=== PATIENT | male | born 1985 | race Caucasian/White ===

== ENCOUNTER 2025-05-21 10:07 | Observation (INO) | payer MEDICAID ==
[2025-05-21] VITALS (10 sets, daily range): BP systolic 138–166; BP diastolic 72–87
[~2025-05-21] VITALS: Ht 177.8 cm; Wt 110.0 kg
[2025-05-21] MEDS ORDERED: ALLOPURINOL100 MG PO (10:24)
[2025-05-21 10:43] LABS: BASOPHILS 0.4 % (0.2-1.2); EOSINOPHILS 2.0 % (0.8-7.0); LYMPHOCYTES 11.3 % (21.8-53.1); MCH 33.0 PG (25.7-32.2); MCHC 34.6 g/dL (32.3-36.5); MCV 95.5 fL (79.0-92.2); MONOCYTES 9.5 % (5.3-12.2); NEUTROPHILS 76.1 % (34.0-67.9); RBC 4.45 M/uL (4.63-6.08)
[2025-05-21 10:55] LABS: ALT (SGPT) 35.0 U/L (14-59); AST (SGOT) 19.0 U/L (15-37); GLOMERULAR FILTRATION RATE,EST 112.0 mL/min (>60); PROTEIN, TOTAL 7.2 g/dL (6.4-8.2); UREA NITROGEN 11.0 mg/dL (7-18)
[2025-05-21] MEDS ORDERED: CEFAZOLIN SODIUM 2 GM in SODIUM CHLORIDE 0.9% 100 ML IV ONE (11:00)
[2025-05-21] MEDS ORDERED: LACTATED RINGER'S 1,000 ML IV ONE ×2 (11:00→13:45)
[2025-05-21] MEDS ORDERED: SODIUM CHLORIDE 0.9% 100 ML IV SCH (12:30)
[2025-05-21] MEDS ORDERED: DEXTROSE 5% - LACTATED RINGERS 1,000 ML IV SCH (13:45)
[2025-05-21] MEDS ORDERED: MORPHINE SULFATE 4 MG/ML VIAL IV PRN (13:45)
[2025-05-21] MEDS ORDERED: LACTATED RINGER'S 1,000 ML IV SCH ×2 (13:45)
--- NOTE | 2025-05-21 13:45 | NUR ---
PT COMPLETES PRE-OP [place] INDEPENDENTLY, FRESH LINENS AND GOWN IN PLACE. ALL PERSONAL CLOTHES AND JEWELRY REMOVED AT THIS TIME. PT STATES NO CURRENT NEEDS, FRIEND AT BEDSIDE, CALL LIGHT WITHIN REACH.
[2025-05-21] MEDS ORDERED: BUPIVACAINE 0.75% IN DEXTROSE 2 ML AMP ONE (14:21)
[2025-05-21] MEDS ORDERED: fentaNYL citrate 100 MCG/2 ML VIAL ONE (14:21)
[2025-05-21] MEDS ORDERED: MIDAZOLAM HCL 2 MG/2 ML VIAL ONE (14:21)
--- NOTE | 2025-05-21 14:24 | NUR ---
PT LEAVES UNIT FOR PROCEDURE.
[2025-05-21] MEDS ORDERED: NALOXONE HCL 0.4 MG SYR IV PRN (14:30)
[2025-05-21] MEDS ORDERED: IBLOOD GLUCOSE TEST STRIP 1 EA TEST VI PRN (14:30)
[2025-05-21] MEDS ORDERED: fentaNYL citrate 50 MCG/ML SDV IV PRN (14:30)
[2025-05-21] MEDS ORDERED: KETAMINE in NS 50 MG/5 ML SYR ONE (15:03)
[2025-05-21] MEDS ORDERED: KETOROLAC TROMETHAMINE 30 MG/ML VIAL ONE (15:11)
[2025-05-21] MEDS ORDERED: LIDOCAINE HCL 2% 5 ML SDV ONE (15:11)
--- NOTE | 2025-05-21 15:44 | NUR ---
05/21/25 1544 JOEL DIAZ 1530 PT ARRIVED TO PACU FROM OR VIA STREACHER, PT AWAKE TO TACTILE STIMULI. PT HAS NATURAL AIRWAY, PT BREATHING EQUAL AND UNLABORED. PT SNORING WHEN FALLING BACK ASLEEP. PT REPORTS NO PAIN OR NAUSE AT THIS TIME. PT HAS 6L OF OXYGEN VIA FACE MASK, PT OXYGEN AT 100% AT 6L. REPORT TAKEN FROM SARAH ROSEN. PT HAS LR RUNNING VIA IV IN L AC. 1535 PT PLACED ON RA, PT STAYING ABOVE 90% O2 SAT ON RA. PT FALLS BACK SLEEP QUICKLY BUT AWAKES TO VERBAL STIMULI AND ANSWERS QUESTIONS 1539 PT COACHED THROUGH DEEP BRATHING OXYGEN DOWN TO 92% ON RA, WHEN DEEP BREATHING DONE OXYGEN BACK UP TO 96% ON RA. 1544 PT GIVEN ICE CHIPS PER REQUEST. PT REPORTS NO PAIN OR NAUSEA AT THIS TIME.
[2025-05-21] MEDS ORDERED: OXYCODONE/APAP 7.5/325 TAB PO PRN (16:00)
[2025-05-21] MEDS ORDERED: IBUPROFEN 600 MG TAB PO PRN (16:00)
--- NOTE | 2025-05-21 16:00 | NUR ---
PT BACK TO [facility] ROOM. RECIEVED REPORT FROM MIKI MALDONADO. PT A+0 X4. PT STATES PAIN IS 3/10 CURRENTLY, DENIES NEED FOR PAIN CONTROL MEASURES. PT DENIES NAUSEA/SOB. CPOX IN PLACE, VSS. PT REQUESTS ICE WATER, GIVEN. PT DENIES ANY FURTHER NEEDS AT THIS TIME, CALL LIGHT WITHIN REACH, FRIEND AT THE BEDSIDE.
--- NOTE | 2025-05-21 19:34 | NUR ---
VERBAL REPORT RECEIVED BY JUANY LIVINGSTON. PATIENT IS AWAKE IN BED AT THIS TIME. CPOX AT BEDSIDE SPO2 95%, BPM 66. PATIENT DENIES ANY NEEDS AT THIS TIME. CALL LIGHT IN REACH.
--- NOTE | 2025-05-21 21:01 | NUR ---
ASSESSMENT COMPLETE. ABD PAD WITH SMALL AMOUNT OF SEROSANGUINEOUS DRAINAGE, NEW PAD PLACED. LOOP DRAINAGE INTACT. PATIENT RATES POST-OP SITE PAIN 3/10, DENIES ANY NEEDS. VSS AT THIS TIME. CALL LIGHT IN REACH. FAMILY AT BEDSIDE AT THIS TIME.
--- NOTE | 2025-05-21 23:38 | NUR ---
SCD PUMP ALARMING, IN ROOM TO RESET SETTINGS. pt RESTING IN BED ON LEFT SIDE, EYES CLOSED, BREATHING UNLABORED. SPO2 95% ON RA, CPOX IN PLACE. NO DISTRESS NOTED.
--- NOTE | 2025-05-22 01:15 | NUR ---
PATIENT IS RESTING IN BED EYES CLOSED BREATHING EVEN AND UNLABORED, SCDS IN PLACE. NO NEEDS AT THIS TIME. CALL LIGHT IN REACH.
[2025-05-22 01:45] VITALS: BP 133/78
--- NOTE | 2025-05-22 01:45 | NUR ---
SUNNY RN IN THE ROOM, AND THIS RN IN THE ROOM WITH PATIENT. PATIENT AMBULATES INDEPENDENTLY TO BATHROOM, PATIENT TOLERATED WELL. PATIENT IN BED AWAKE, CPOX AT BEDSIDE SPO2 97%, BPM 79. PATIENT DENIES ANY NEEDS AT THIS TIME. CALL LIGHT IN REACH.
--- NOTE | 2025-05-22 04:23 | NUR ---
PATIENT RESTING IN BED BREATHING EVEN AND UNLABORED. CPOX AT BEDSIDE SPO2 95%, BPM 52. CALL LIGHT IN REACH.
[2025-05-22 06:16] VITALS: BP 120/67
[2025-05-22 06:19] VITALS: BP 120/67
--- NOTE | 2025-05-22 06:22 | NUR ---
PATIENT IS RESTING IN BED AWAKE. CPOX AT BEDSIDE, VSS. FRESH ICE WATER PROVIDED. PATIENT DENIES ANY NEEDS AT THIS TIME. CALL LIGHT IN REACH.
--- NOTE | 2025-05-22 07:20 | NUR ---
RECIEVED REPORT FROM MIKI FERNANDEZ AND MIKI CORREA. PT AWAKE IN BED, DENIES PAIN OR NAUSEA AT THIS TIME. PT STATES NO CURRENT NEEDS. ABD PAD WITH SCANT AMOUNT OF SEROSANGUINOUS DRAINAGE PRESENT AT THIS TIME. CALL LIGHT WITHIN REACH. SITZ BATH EDUCATION DONE WITH PT, PT VERBALIZES UNDERSTANDING.
[2025-05-22] MEDS ORDERED: IBUPROFEN600 MG PO (09:10)
[2025-05-22] MEDS ORDERED: TYLENOL EXTRA500 MG PO (09:12)
--- NOTE | 2025-05-22 09:28 | NUR ---
IV DC'D WNL. PT UP DOING SITZ BATH INDEPENDENTLY, DRESSING IN OWN CLOTHES. AT THE BEDSIDE. CALL LIGHT WITHIN REACH.
[2025-05-22 10:00] VITALS: BP 151/89
[2025-05-22 10:49] VITALS: BP 151/89
--- NOTE | 2025-05-24 11:53 | OR ---
[facility] [address], [place] [address] Signed DATE OF OPERATION: 05/21/2025 SURGEON: Gina Cevallos MD PREOPERATIVE DIAGNOSIS: Left perineal/perirectal abscess. POSTOPERATIVE DIAGNOSIS: Left perineal/perirectal abscess, complex, extensive. PROCEDURES: 1. Exam under anesthesia, left perineum. 2. Incision, drainage and debridement of complex left perineal abscess including debridement of necrotic tissue. 3. Placement of yellow vessel loops x2 for drainage. ANESTHESIA: Spinal with IV sedation; Rachana Bernadette, TAILOR FITTER, and local 10 mL of 0.25% Marcaine with epinephrine. INDICATION: This 39-year-old white man presented to the emergency room following several days of increasing pain and spontaneous necessitation of purulent material earlier today in the left perineum. Examination by Dr. Thomas confirmed findings of an incompletely drained perineal or perirectal abscess. He has been fluid resuscitated, given intravenous antibiotics and now to undergo exam under anesthesia and incision and drainage as appropriate was reviewed with him. He understands and wished to proceed. FINDINGS: A spinal anesthetic was used and in the prone zahra-knife position, the left perineum could easily be identified confirming induration in an area of necrosis, area of spontaneous necessitation. The cavity was probed proximally and distally and it likely emanates from the anal canal in fact. Two separate vessel loops were used to traverse the initial incision and debridement site and an area closer to the anal canal and area far away from it as well. He tolerated the procedure well. DESCRIPTION OF PROCEDURE: The patient was brought to the operating room, having undergone a spinal anesthetic. In the prone zahra-knife position, he was given additional sedation with IV medication. The buttocks were taped apart in the perianal and perineal area were clipped with an Electronically Signed By: GINA CEVALLOS MD 05/24/25 1153 PATIENT NAME: JAROD CAVANAUGH OPERATIVE REPORT DATE OF : 81 REPORT #: [id number] PHYSICIAN: GINA CEVALLOS MD PCP: OTHER PCP REPORT IS CONFIDENTIAL AND NOT TO BE RELEASED WITHOUT AUTHORIZATION [facility] [address], [place] [address] Signed automatic clipping device. The buttocks were taped apart more fully and the perineum prepared with a Betadine based solution and draped sterilely. The area of prior spontaneous necessitation had a necrotic appearance to it. With a 15 blade, elliptical incision was made at this site, excising any tissue. The wound was probed with hemostat allowing for egress of purulent material. This was sent for Gram stain and culture. Hemostat was tracked proximally to the anal area and distally away from it, which showed similar watery purulent material. A counter incision was made proximally (close to the anal canal) through which the yellow vessel loop was passed. Similarly, a counter incision was made distally more towards the perineum itself allowing for placement of a vessel loop as well. Irrigation was undertaken copiously with sterile saline. Yellow vessel loops that had been passed between the 2 areas were tied securely in place. Additional irrigation was undertaken. The erythema and so forth of the operative site was resolving already at this point. 10 mL of 0.25% Marcaine with epinephrine was injected locally. Hemostasis was assured with electrocautery and a peripad applied. He was ultimately returned to a supine position and taken to recovery room in good condition and suffered no complications. Sponge, needle, and instrument counts reported as correct x3. MD LINDA Roe/LIANNAL /[id number] cc: Dr. Thomas Copies: ~ Electronically Signed By: GINA CEVALLOS MD 05/24/25 1153 PATIENT NAME: JAROD CAVANAUGH OPERATIVE REPORT DATE OF : 81 REPORT #: [id number] PHYSICIAN: GINA CEVALLOS MD PCP: OTHER PCP REPORT IS CONFIDENTIAL AND NOT TO BE RELEASED WITHOUT AUTHORIZATION
--- NOTE | 2025-05-24 11:53 | DS ---
[facility] [address] [place], [place] [address] Signed ADMISSION DATE: 05/21/2025 DISCHARGE DATE: 05/22/2025 REASON FOR ADMISSION: Left perineal/perirectal abscess. HISTORY OF PRESENT ILLNESS: This 39-year-old white man presenting to the emergency room having had spontaneous necessitation of a rather large left perineal abscess. Examination confirms the likelihood of a perirectal abscess extending to the left hemiscrotal area. He is admitted for further evaluation and care. PERTINENT PHYSICAL EXAMINATION: GENERAL: Showed a healthy white man, otherwise, but with left perianal and anterior perineal fold to be quite firm and tender with an area of spontaneous necessitation in the central portion. His white count was 13.64. Labs otherwise normal. HOSPITAL COURSE: He was admitted, given antibiotic Ancef and Flagyl and taken to operation with a saddle block and underwent incision and drainage of the left perineal/perirectal abscess. A larger abscess cavity was noted than expected and spontaneous necessitation did not allow for complete drainage. Loculations were broken up and a counter incision was made towards the anal canal (but not through it) where a yellow vessel loop was placed and anteriorly to the left base of the hemiscrotum similar treatment including a yellow vessel loop. He postoperatively did quite well, feeling markedly improved. Antibiotics were maintained postoperatively. He is going to be discharged home and will do sitz baths on a daily basis and after bowel movements and can do them more if he is able. He does not wish to return to [place] to have the yellow vessel loops removed; normally I would do this at two weeks following operation. He will not need antibiotics at discharge as he does not have special risks factors specifically ongoing cellulitis or diabetes. The patient will follow up with his usual physician, Dr. Luna in [place], [place]. He can certainly pull the vessel loops out at two weeks if he feels comfortable doing so. Electronically Signed By: GINA CEVALLOS MD 05/24/25 1153 PATIENT NAME: JAROD CAVANAUGH DISCHARGE SUMMARY DATE OF : [birth year] REPORT #: [id number] PHYSICIAN: GINA CEVALLOS MD PCP: OTHER PCP REPORT IS CONFIDENTIAL AND NOT TO BE RELEASED WITHOUT AUTHORIZATION [address] [address] Signed Otherwise, contact with general surgeon or with myself if he chooses to return here for further management. It is noted that he should continue the sitz baths after the drains are removed until both wounds have closed over. The patient and his family have been advised that there is a 1/10 chance (10%) that he would develop a chronic fistula in [place], but most likely he will not. DISCHARGE MEDICATIONS: Will include: 1. Tylenol p.o. q.6 hours p.r.n. pain. 2. Motrin 600 mg p.o. q.6 hours p.r.n. pain. DISCHARGE DIAGNOSIS: Left perineal/perirectal abscess status post incision and drainage and placement of yellow vessel loops x2. MD LINDA Roe/LIANNAL /[id number] cc: Dr. Luna in [place], [place] Copies: ~ Electronically Signed By: GINA CEVALLOS MD 05/24/25 1153 PATIENT NAME: JAROD CAVANAUGH DISCHARGE SUMMARY DATE OF : [birth year] REPORT #: [id number] PHYSICIAN: GINA CEVALLOS MD PCP: OTHER PCP REPORT IS CONFIDENTIAL AND NOT TO BE RELEASED WITHOUT AUTHORIZATION
--- NOTE | 2025-05-24 14:13 | HP ---
[facility] [address] [place], [place] [address] Signed ADMISSION DATE: 05/21/2025 REASON FOR ADMISSION: Left perineal/perirectal abscess. 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 He is accompanied by a friend at this time. The patient was in this area [place] and over the past several days had increasing pain in the left perineal area ultimately and necessitating purulent material today. He presented to the emergency room today and was evaluated by Dr. Jan Thomas, emergency room physician who recognized a left perineal/perirectal abscess. He was begun on antibiotics, IV fluids, and is admitted for further evaluation and care. PAST MEDICAL HISTORY: Surprisingly unremarkable. He has never had any ongoing medical problems and denies any prior surgical intervention. He does have gout for which he takes allopurinol 100 mg daily. Evaluation included a CBC and Chem profile showing a white count elevation of 13.6, hematocrit 42.5, platelets 220,000. Normal electrolytes and liver enzymes. Imaging study was not done at my recommendation. REVIEW OF SYSTEMS: He denies any shortness of breath or chest pain. He has had no dysphagia or dysuria. Did have a drainage from the area spontaneously, previously /10, now pain considered 6/10. PHYSICAL EXAMINATION: GENERAL: Bearded white man accompanied by his friend. HEENT: Trachea is midline. Mucous membranes are moist. IV bag has run out. It is noted. CHEST: Clear. HEART: Regular without murmur. ABDOMEN: Soft and easily palpated. There is no sign of tenderness. RECTAL: In the frogleg position the left perineum quite obviously has induration and fullness and mild erythema. ASSESSMENT: The patient has a perineal/perirectal abscess for which a exam under anesthesia, incision and drainage and so forth would be recommended. He was begun on medication Electronically Signed By: GINA CEVALLOS MD 05/24/25 1413 PATIENT NAME: JAROD CAVANAUGH HISTORY AND PHYSICAL DATE OF : [birth year] REPORT #: [id number] PHYSICIAN: GINA CEVALLOS MD PCP: OTHER PCP REPORT IS CONFIDENTIAL AND NOT TO BE RELEASED WITHOUT AUTHORIZATION [facility] [address] [place], [place] [address] Signed including Flagyl and Ancef as recommended. I discussed the plan of operation which would include incision of the abscess and likely a counter incision with a yellow vessel loop placement. Sitz baths would be recommended going forward. The patient and his associates would like to leave from [place] by 7 o'clock tomorrow. He might be able to be discharged today under the care of his friend who is with him as I expect it would be likely. The risk of the procedure included but not limited to bleeding, infection, and need for removal of a drain in two weeks were reviewed with him, he understands. He does have a provider in [facility], though he cannot think of her name at this time. Understand all of this, he wished to proceed. MD LINDA Roe/JODI /[id number] cc: [facility] Copies: ~ Electronically Signed By: GINA CEVALLOS MD 05/24/25 1413 PATIENT NAME: MAOJARODMERCEDES FUENTES HISTORY AND PHYSICAL DATE OF : 81 REPORT #: [id number] PHYSICIAN: GINA CEVALLOS MD PCP: OTHER PCP REPORT IS CONFIDENTIAL AND NOT TO BE RELEASED WITHOUT AUTHORIZATION
== END 2025-05-22 10:16 | disposition home or self-care (01) ==
LOC: ED 10:07 → MS 10:09
PROVIDERS: Emergency Medicine; ADMIT Surgery; ATTEND Surgery
PROC: 0D9QX0Z Drainage of Anus with Drainage Device, External Approach (ICD-10-PCS; principal; 2025-05-21 14:36)
DX: K61.1 Rectal abscess (principal); M10.9 Gout, unspecified; Z79.899 Other long term (current) drug therapy
CPT/HCPCS: 00300; 36415; 80053; 85025; 87070; 87075; 87205; 96365; 96375; 96376; 99284-25; A9270; G0378; J0688; J1885; J2003; J2250; J2405; J2704; J3010; J3490; J7030; J7121